=== PATIENT | female | born 1985 | race African-American/Black ===

== ENCOUNTER 2016-12-26 05:08 | Day surgery (SDC) | payer OTHER ==
[2016-12-23 14:36] VITALS: BMI 38.0
[2016-12-26] MEDS ORDERED: PROPOFOL 20 ML ONE (11:09)
[2016-12-26] MEDS ORDERED: MIDAZOLAM HCL 2 MG/2 ML SINGLE DOSE VIAL ONE (11:10)
[2016-12-26] MEDS ORDERED: IODINE/POTASSIUM IODIDE 5%/10% 14 ML BOTTLE NR ONE (12:00)
[2016-12-26] MEDS ORDERED: FERRIC SUBSULFATE 500 ML BOTTLE TP ONE (12:05)
[2016-12-26] MEDS ORDERED: DEXAMETHASONE SOD PHOSPHATE 4 MG/1 ML VIAL ONE (12:07)
[2016-12-26] MEDS ORDERED: oxyCODONE HCL 5 MG TABLET PO PRN (12:13)
[2016-12-26] MEDS ORDERED: ONDANSETRON 4 MG/2 ML VIAL IVPUSH PRN (12:13)
[2016-12-26] MEDS ORDERED: LACTATED RINGERS SOLUTION 1,000 ML IV SCH (12:15)
--- NOTE | 2016-12-26 13:05 | OP ---
DATE OF OPERATION: 12/26/2016 PREOPERATIVE DIAGNOSES: High-grade cervical dysplasia, human papillomavirus. OPERATION: Cone loop electrocautery excision procedure. POSTOPERATIVE DIAGNOSES: High-grade cervical dysplasia, human papillomavirus. SURGEON: Hailey Arroyo MD ANESTHESIA: General. ANESTHESIOLOGIST: John Licona MD PROCEDURE: Patient was taken to the operating room, placed in the dorsal lithotomy position, prepped and draped in the usual sterile fashion. A timeout was performed in accordance to hospital regulation. A speculum was placed in vagina, and vinegar was placed to prep the vagina. A large LEEP cone was then performed. Cautery of the cervix was done. The specimen was submitted to Pathology. Hemostasis was achieved. Estimated blood loss was 3 mL. HAILEY ARROYO M.D. [id number]
[2016-12-26 13:30] VITALS: TEMP 98.7
[2016-12-26 14:55] VITALS: BP 110/70; PULSE 74
--- NOTE | 2016-12-27 13:09 | PATH ---
Surgical Pathology Report Patient Name: STEPHANIE MAK [facility]. Rec. #: [id number] /Age/Gender: 1985 (Age: 31) / F Account: [id number] Location: [facility] Taken: 12/26/2016 Received: 12/26/2016 Reported: 12/27/2016 Physicians: Hailey Arroyo M.D. Specimen(s) Received CERVICAL LEEP CONE BIOPSY Clinical History HPV cervical dysplasia Final Diagnosis CERVIX, LEEP CONE EXCISION: FOCAL HIGH GRADE SQUAMOUS INTRAEPITHELIAL LESION (HSIL), ARISING IN A BACKGROUND OF ACUTE AND CHRONIC INFLAMMATION WITH REACTIVE CHANGES AND ATYPICAL SQUAMOUS METAPLASIA. MARGINS OF EXCISION ARE FREE OF LESION. Electronically Signed Jeremy Martin M.D. Gross Description Received in formalin labeled "cervix, cone biopsy," is a 1.8 cm in diameter annular cervical cone biopsy. The specimen is unoriented. The specimen is surfaced by a kilgore-pink, shiny and glistening mucosa without visible lesions. The specimen is inked blue and serially sectioned. The specimen is entirely and sequentially submitted in 4 cassettes. /12/26/2016 saudi12/26/2016
== END 2016-12-26 14:40 | disposition home or self-care (01) ==
LOC: JASU-SURG 05:08
PROVIDERS: ATTEND Obstetrics & Gynecology
PROC: 0UBC7ZX Excision of Cervix, Via Natural or Artificial Opening, Diagnostic (ICD-10-PCS; principal; 2016-12-26 12:00)
DX: R87.613 High grade squamous intraepithelial lesion on cytologic smear of cervix (HGSIL) (principal); R87.810 Cervical high risk human papillomavirus (HPV) DNA test positive
CPT/HCPCS: 88307-TC; 94760

== ENCOUNTER 2020-06-30 17:04 | Inpatient (IN) | payer OTHER ==
[2020-06-30] MEDS ORDERED: AZITHROMYCIN IVPB 500 MG in DEXTROSE 5%-WATER - 250 ML IVPB ONE (18:18)
[2020-06-30] MEDS ORDERED: DEXAMETHASONE SOD PHOSPHATE 10 MG/1 ML VIAL IVPUSH ONE (18:18)
[2020-06-30] MEDS ORDERED: DOXYCYCLINE INJECTION 100 MG in DEXTROSE 5%-WATER - 100 ML IVPB ONE (18:18)
[2020-06-30] MEDS ORDERED: DOXYCYCLINE HYCLATE 100 MG VIAL ONE (19:32)
[2020-06-30] MEDS ORDERED: DEXAMETHASONE SOD PHOSPHATE 10 MG/1 ML VIAL ONE (19:32)
[2020-06-30] MEDS ORDERED: AZITHROMYCIN IVPB 500 MG/250 ML BAG IVPB ONE (19:32)
[2020-06-30 19:56] LABS: VENOUS BASE EXCESS 1.7 mmol/L (-2-2); VENOUS O2 SATURATION 50.5 % (70-80); VENOUS PCO2 50.4 mmHg (38-52); VENOUS PH 7.363 (7.310-7.410)
[2020-06-30 19:59] LABS: BASO % 0.5 % (0-2.0); MONO % 11.7 % (3.8-10.2)
[2020-06-30] MEDS ORDERED: SODIUM CHLORIDE 0.9% 500 ML INFUS.BAG IV ONE (20:00)
[2020-06-30 20:05] LABS: HEMATOCRIT 42.5 % (32.4-45.2); HEMOGLOBIN 14.6 GM/dL (10.7-15.3); LYMPH % 28.8 % (8-40); MCH 31.7 pg (25.7-33.7); MCHC 34.4 g/dl (32.0-36.0); MEAN CELL VOLUME 92.2 fl (80-96); MEAN PLT VOLUME 7.9 fl (7.5-11.1); PLATELET COUNT 215 K/MM3 (134-434); RBC 4.61 M/mm3 (3.60-5.2); RDW 12.8 % (11.6-15.6)
[2020-06-30 20:15] LABS: CHLORIDE 104 mmol/L (98-107); SODIUM 138 mmol/L (136-145)
[2020-06-30 20:18] LABS: ALBUMIN 3.1 g/dl (3.4-5.0); ANION GAP 6 MMOL/L (8-16); CO2 28 mmol/L (21-32); GLUCOSE,RANDOM 72 mg/dL (74-106)
[2020-06-30 20:21] LABS: BILIRUBIN,DIRECT 0.2 mg/dL (0.0-0.2); CREATININE 1.3 mg/dL (0.55-1.3); INR 1.07 (0.83-1.09); PROTHROMBIN TIME (PATIENT) 13.1 SEC (9.7-13.0); SGOT/AST 102 U/L (15-37); SGPT/ALT 100 U/L (13-61)
[2020-06-30 20:23] LABS: ACTIVATED PTT 30.5 SECONDS (25.2-36.5); BILIRUBIN,TOTAL 0.4 mg/dL (0.2-1); TOT PROT 7.1 g/dl (6.4-8.2)
[2020-06-30 20:24] LABS: ALK PHOS 49 U/L (45-117)
[2020-06-30] MEDS ORDERED: ACETAMINOPHEN 500 MG TABLET (FP) PO ONE (20:29)
[2020-06-30 20:34] LABS: LDH 706 U/L (84-246)
[2020-06-30] MEDS ORDERED: ACETAMINOPHEN 325 MG TABLET (FP) ONE (20:43)
[2020-06-30 20:58] LABS: ANISOCYTOSIS 0; MACROCYTOSIS 0; PLATELET ESTIMATE NORMAL
[2020-06-30] MEDS ORDERED: ACETAMINOPHEN 325 MG TABLET (FP) PO PRN (21:49)
[2020-06-30] MEDS ORDERED: ALBUTEROL SO4 HFA INHALER IH PRN (22:50)
[2020-07-01 02:02] LABS: EPI CELLS 10 /uL (0-25.1); HYALINE CASTS 0 /uL (0-3.1); URINE APPEARANCE CLEAR; URINE BACTERIA 647 /uL (0-1359); URINE BILIRUBIN NEGATIVE (NEGATIVE); URINE COLOR YELLOW; URINE GLUCOSE (UA) NEGATIVE (NEGATIVE); URINE KETONE TRACE (NEGATIVE); URINE LEUK ESTERASE TRACE (NEGATIVE); URINE NITRITE NEGATIVE (NEGATIVE); URINE PROTEIN 1+ (NEGATIVE); URINE UROBILINOGEN 0.2 mg/dL (0.2-1.0); URINE WBC 33 /uL (0-25.8)
[2020-07-01 09:49] LABS: BASO % 0.6 % (0-2.0); HEMOGLOBIN 14.7 GM/dL (10.7-15.3); LYMPH % 31.4 % (8-40); MCH 32.2 pg (25.7-33.7); MEAN CELL VOLUME 91.9 fl (80-96); MEAN PLT VOLUME 7.5 fl (7.5-11.1); MONO % 9.4 % (3.8-10.2); NEUT % 58.6 % (42.8-82.8); PLATELET COUNT 268 K/MM3 (134-434); RBC 4.57 M/mm3 (3.60-5.2); RDW 12.7 % (11.6-15.6); WHITE BLOOD COUNT 3.8 K/mm3 (4.0-10.0)
[2020-07-01] MEDS ORDERED: ENOXAPARIN NA (PORCINE) 40 MG/0.4 ML DISP.SYRIN SQ SCH (10:00)
[2020-07-01] MEDS: DEXAMETHASONE 4 MG TABLET (FP) PO SCH (10:41)
[2020-07-01 10:43] LABS: CALCIUM 8.5 mg/dL (8.5-10.1)
[2020-07-01 10:45] LABS: CREATININE 0.9 mg/dL (0.55-1.3)
[2020-07-01 10:46] LABS: PHOSPHOROUS 3.1 mg/dL (2.5-4.9)
[2020-07-01 10:47] LABS: ALBUMIN 2.8 g/dl (3.4-5.0); BILIRUBIN,TOTAL 0.5 mg/dL (0.2-1); BLOOD UREA NITROGEN 11.9 mg/dL (7-18); MAGNESIUM 2.6 mg/dL (1.8-2.4); TOT PROT 7.2 g/dl (6.4-8.2)
[2020-07-01] MEDS ORDERED: REMDESIVIR 200 MG in SODIUM CHLORIDE 210 ML IVPB ONE (15:00)
[2020-07-01] MEDS: ENOXAPARIN NA (PORCINE) 40 MG/0.4 ML DISP.SYRIN SQ SCH (21:21)
[2020-07-01] MEDS: BUDESONIDE/FORMETEROL FUMARATE 160/4.5 mcg INHALER IH SCH (21:21)
[2020-07-02 09:19] LABS: BASO % 0.2 % (0-2.0); HEMATOCRIT 40.2 % (32.4-45.2); HEMOGLOBIN 14.1 GM/dL (10.7-15.3); LYMPH % 23.8 % (8-40); MCH 32.3 pg (25.7-33.7); MCHC 35.2 g/dl (32.0-36.0); MEAN CELL VOLUME 91.8 fl (80-96); MEAN PLT VOLUME 7.1 fl (7.5-11.1); MONO % 17.9 % (3.8-10.2); NEUT % 58.1 % (42.8-82.8); PLATELET COUNT 337 K/MM3 (134-434); RBC 4.37 M/mm3 (3.60-5.2); RDW 12.5 % (11.6-15.6); WHITE BLOOD COUNT 8.4 K/mm3 (4.0-10.0)
[2020-07-02 09:45] LABS: ALBUMIN 2.8 g/dl (3.4-5.0); CALCIUM 8.3 mg/dL (8.5-10.1)
[2020-07-02 09:46] LABS: BLOOD UREA NITROGEN 15.1 mg/dL (7-18)
[2020-07-02 09:50] LABS: BILIRUBIN,TOTAL 0.3 mg/dL (0.2-1); CREATININE 0.8 mg/dL (0.55-1.3)
[2020-07-02 09:51] LABS: TOT PROT 6.6 g/dl (6.4-8.2)
[2020-07-02] MEDS: DEXAMETHASONE 4 MG TABLET (FP) PO SCH (10:20)
[2020-07-02] MEDS: ENOXAPARIN NA (PORCINE) 40 MG/0.4 ML DISP.SYRIN SQ SCH ×2 (10:20→21:09)
[2020-07-02] MEDS: BUDESONIDE/FORMETEROL FUMARATE 160/4.5 mcg INHALER IH SCH ×2 (10:21→21:09)
[2020-07-02] MEDS: REMDESIVIR 100 MG in SODIUM CHLORIDE 230 ML IVPB SCH (15:20)
[2020-07-03] MEDS: DEXAMETHASONE 4 MG TABLET (FP) PO SCH (10:33)
[2020-07-03] MEDS: BUDESONIDE/FORMETEROL FUMARATE 160/4.5 mcg INHALER IH SCH ×2 (10:34→22:16)
[2020-07-03] MEDS: ENOXAPARIN NA (PORCINE) 40 MG/0.4 ML DISP.SYRIN SQ SCH ×2 (10:34→22:16)
[2020-07-03 13:58] LABS: ALBUMIN 2.9 g/dl (3.4-5.0); BLOOD UREA NITROGEN 16.6 mg/dL (7-18); CALCIUM 8.3 mg/dL (8.5-10.1)
[2020-07-03 14:01] LABS: CREATININE 0.8 mg/dL (0.55-1.3)
[2020-07-03 14:03] LABS: BILIRUBIN,TOTAL 0.3 mg/dL (0.2-1); TOT PROT 6.5 g/dl (6.4-8.2)
[2020-07-03 14:04] VITALS: BMI 35.0
[2020-07-03] MEDS: REMDESIVIR 100 MG in SODIUM CHLORIDE 230 ML IVPB SCH (16:41)
[2020-07-04 08:56] LABS: CALCIUM 8.5 mg/dL (8.5-10.1)
[2020-07-04 08:57] LABS: ALBUMIN 2.7 g/dl (3.4-5.0); BLOOD UREA NITROGEN 14.2 mg/dL (7-18)
[2020-07-04 09:00] LABS: CREATININE 0.8 mg/dL (0.55-1.3)
[2020-07-04 09:02] LABS: BILIRUBIN,TOTAL 0.3 mg/dL (0.2-1)
[2020-07-04] MEDS: ENOXAPARIN NA (PORCINE) 40 MG/0.4 ML DISP.SYRIN SQ SCH ×2 (09:54→21:24)
[2020-07-04] MEDS: DEXAMETHASONE 4 MG TABLET (FP) PO SCH (09:54)
[2020-07-04] MEDS: BUDESONIDE/FORMETEROL FUMARATE 160/4.5 mcg INHALER IH SCH ×2 (09:55→21:25)
[2020-07-04] MEDS: REMDESIVIR 100 MG in SODIUM CHLORIDE 230 ML IVPB SCH (18:06)
[2020-07-05] MEDS: BUDESONIDE/FORMETEROL FUMARATE 160/4.5 mcg INHALER IH SCH ×2 (10:11→21:56)
[2020-07-05] MEDS: DEXAMETHASONE 4 MG TABLET (FP) PO SCH (10:11)
[2020-07-05] MEDS: ENOXAPARIN NA (PORCINE) 40 MG/0.4 ML DISP.SYRIN SQ SCH ×2 (10:11→21:56)
[2020-07-05] MEDS: REMDESIVIR 100 MG in SODIUM CHLORIDE 230 ML IVPB SCH (15:00)
[2020-07-06] MEDS: BUDESONIDE/FORMETEROL FUMARATE 160/4.5 mcg INHALER IH SCH (09:50)
[2020-07-06] MEDS: ENOXAPARIN NA (PORCINE) 40 MG/0.4 ML DISP.SYRIN SQ SCH (09:50)
[2020-07-06] MEDS: DEXAMETHASONE 4 MG TABLET (FP) PO SCH (09:50)
[2020-07-06 10:21] VITALS: BP 106/55; TEMP 97.7
[2020-07-06 10:50] VITALS: PULSE 110
== END 2020-07-06 13:04 | disposition home or self-care (01) | DRG 177 ==
LOC: JER 17:04 → JERBED 19:15 → J5S 23:47
PROVIDERS: ADMIT Hospitalist
PROC: XW033E5 Introduction of Remdesivir Anti-infective into Peripheral Vein, Percutaneous Approach, New Technology Group 5 (ICD-10-PCS; principal; 2020-07-01)
DX: U07.1 COVID-19 (principal); J12.82 Pneumonia due to coronavirus disease 2019; J96.01 Acute respiratory failure with hypoxia; Z68.35 Body mass index [BMI] 35.0-35.9, adult; R74.01 Elevation of levels of liver transaminase levels; E88.09 Other disorders of plasma-protein metabolism, not elsewhere classified; E66.01 Morbid (severe) obesity due to excess calories; R00.0 Tachycardia, unspecified
CPT/HCPCS: 36415; 71045-TC-FY; 80053; 81003; 82248; 82550; 82553; 82728; 82803; 83605; 83615; 83735; 84100; 84484; 84703; 85025; 85379; 85610; 85651; 85730; 86140; 86769; 86850; 86900; 86901; 87040; 87086; 87804; 93005; 93010; 94761; 99291; C9399; C9803; J1100; U0003; U0005